=== PATIENT | female | born 1970 | race Caucasian/White ===

== ENCOUNTER 2017-05-26 16:43 | Emergency (ER) | payer BC, OTHER ==
[2017-05-26 16:57] VITALS: BP 135/84
[2017-05-26] MEDS ORDERED: Aspirin 81 MG Tab.Chew PO ONE (16:57)
[2017-05-26] MEDS ORDERED: Aspirin 81 MG Tab.Chew ONE (17:15)
--- NOTE | 2017-05-26 18:41 | EDM.PDOC ---
ED HPI GENERAL MEDICAL PROBLEM - General Chief Complaint: Chest Pain Stated Complaint: chest pain Time Seen by Provider: 05/26/17 17:00 Source of Information: Reports: Patient History Limitations: Reports: No Limitations - History of Present Illness INITIAL COMMENTS - FREE TEXT/NARRATIVE: 46-year-old female presents for evaluation and treatment of chest pain. Reports that it is located in the center of her chest. She states she was watching TV when the chest pain started. she initially became nauseated. Reports that she initially felt that this was heartburn she did take some Tums but did not get any relief with the Tums. Chest pain started about an hour prior to arrival in the ER. No current nausea. No vomiting. She denies any shortness of breath, lightheadedness, dizziness, syncope, current nausea, vomiting or any abdominal pain. The pain does not radiate into her neck, arms or back. She reports that she did eat about 2 hours prior to this chest pain starting. No recent cough or cold symptoms. patient does not have any cardiac history. No history of any MIs. Previous abdominal surgeries including cholecystectomy. patient denies any alcohol or drug use. Chest Pain Score (Numeric/FACES): 3 - Related Data Allergies Allergy/AdvReac Type Severity Reaction Status Date / Time Penicillins Allergy Hives Verified 05/26/17 16:53 Sulfa (Sulfonamide Allergy Hives Verified 05/26/17 16:53 Antibiotics) Home Meds: Home Meds Formoterol/Mometasone [Dulera 100 MCG/5 MCG] 1 puff INH DAILY 05/26/17 [History] Levothyroxine 1 tab PO DAILY 05/26/17 [History] Past Medical History Respiratory History: Reports: Asthma Endocrine/Metabolic History: Reports: Hypothyroidism Social & Family History - Tobacco Use Smoking Status *Q: Never Smoker ED ROS GENERAL - Review of Systems Review Of Systems: See Below Constitutional: Denies: Fever, Chills Respiratory: Denies: Shortness of Breath, Cough Cardiovascular: Reports: Chest Pain. Denies: Lightheadedness, Syncope GI/Abdominal: Reports: Nausea (Initially now resolved). Denies: Abdominal Pain , Vomiting Musculoskeletal: Denies: Neck Pain, Back Pain Neurological: Denies: Syncope ED EXAM, GENERAL - Physical Exam Exam: See Below Exam Limited By: No Limitations General Appearance: Alert, WD/WN, Anxious, Mild Distress Eye Exam: Bilateral Eye: Normal Inspection Ears: Normal External Exam, Hearing Grossly Normal Nose: Normal Inspection Throat/Mouth: Normal Inspection, Normal Lips, Normal Voice, No Airway Compromise Neck: Normal Inspection Respiratory/Chest: No Respiratory Distress, Lungs Clear, Normal Breath Sounds, Chest Non-Tender Cardiovascular: Normal Peripheral Pulses, Regular Rate, Rhythm, No Edema, No Murmur GI/Abdominal: Normal Bowel Sounds, Soft, Non-Tender Neurological: Alert, Oriented, Normal Cognition Psychiatric: Normal Affect, Normal Mood Skin Exam: Warm, Dry, Normal Color EKG INTERPRETATION EKG Date: 05/26/17 Time: 16:50 Rhythm: NSR Rate (Beats/Min): 68 [place]: Normal P-Wave: Present QRS: Normal ST-T: Normal QT: Normal EKG Interpretation Comments: NSR at 68 bpm. Early " R" wave transition. Qt mildly prolonged for rate. Reviewed by myself and Dr. Torres. Course - Vital Signs Last Recorded V/S: Last Vital Signs Temp 36.6 C 05/26/17 16:54 Pulse 82 05/26/17 16:54 Resp 16 05/26/17 16:54 BP 135/84 05/26/17 16:54 Pulse Ox 99 05/26/17 16:54 - Orders/Labs/Meds Labs: Laboratory Tests 05/26/17 05/26/17 05/26/17 Range/Units 16:54 16:54 16:54 WBC 8.02 (3.98-10.04) K/mm3 RBC 4.73 (3.98-5.22) M/mm3 Hgb 13.2 (11.2-15.7) gm/L Hct 39.4 (34.1-44.9) % MCV 83.3 (79.4-94.8) fl MCH 27.9 (25.6-32.2) pg MCHC 33.5 (32.2-35.5) g/dl RDW Std Deviation 41.5 (36.4-46.3) fL Plt Count 291 (182-369) K/mm3 MPV 9.2 L (9.4-12.3) fl Neutrophils % (Manual) 59 (40-60) % Band Neutrophils % 1 (0-10) % Lymphocytes % (Manual) 36 (20-40) % Atypical Lymphs % 0 % Monocytes % (Manual) 3 (2-10) % Eosinophils % (Manual) 1 (0.7-5.8) % Basophils % (Manual) 0 L (0.1-1.2) Platelet Estimate Adequate RBC Morph Comment Normal PT 10.4 (8.0-13.0) SECONDS INR 0.97 APTT 25 (22-36) SECONDS Sodium 140 (136-145) mEq/L Potassium 3.4 L (3.5-5.1) mEq/L Chloride 103 (98-107) mEq/L Carbon Dioxide 26 (21-32) mEq/L Anion Gap 14.4 (5-15) BUN 13 (7-18) mg/dL Creatinine 0.8 (0.55-1.02) mg/dL Est Cr Clr Drug Dosing 76.68 mL/min Estimated GFR (MDRD) > 60 (>60) mL/min BUN/Creatinine Ratio 16.3 (14-18) Glucose 104 (74-106) mg/dL Calcium 9.4 (8.5-10.1) mg/dL Total Bilirubin 0.2 (0.2-1.0) mg/dL AST 22 (15-37) U/L ALT 30 (14-59) U/L Alkaline Phosphatase 79 (46-116) U/L Troponin I < 0.017 (0.00-0.056) ng/mL Total Protein 8.3 H (6.4-8.2) g/dl Albumin 4.1 (3.4-5.0) g/dl Globulin 4.2 gm/dL Albumin/Globulin Ratio 1.0 (1-2) Lipase 1221 H (73-393) U/L 05/26/17 Range/Units 19:49 WBC (3.98-10.04) K/mm3 RBC (3.98-5.22) M/mm3 Hgb (11.2-15.7) gm/L Hct (34.1-44.9) % MCV (79.4-94.8) fl MCH (25.6-32.2) pg MCHC (32.2-35.5) g/dl RDW Std Deviation (36.4-46.3) fL Plt Count (182-369) K/mm3 MPV (9.4-12.3) fl Neutrophils % (Manual) (40-60) % Band Neutrophils % (0-10) % Lymphocytes % (Manual) (20-40) % Atypical Lymphs % % Monocytes % (Manual) (2-10) % Eosinophils % (Manual) (0.7-5.8) % Basophils % (Manual) (0.1-1.2) Platelet Estimate RBC Morph Comment PT (8.0-13.0) SECONDS INR APTT (22-36) SECONDS Sodium (136-145) mEq/L Potassium (3.5-5.1) mEq/L Chloride (98-107) mEq/L Carbon Dioxide (21-32) mEq/L Anion Gap (5-15) BUN (7-18) mg/dL Creatinine (0.55-1.02) mg/dL Est Cr Clr Drug Dosing mL/min Estimated GFR (MDRD) (>60) mL/min BUN/Creatinine Ratio (14-18) Glucose (74-106) mg/dL Calcium (8.5-10.1) mg/dL Total Bilirubin (0.2-1.0) mg/dL AST (15-37) U/L ALT (14-59) U/L Alkaline Phosphatase (46-116) U/L Troponin I < 0.017 (0.00-0.056) ng/mL Total Protein (6.4-8.2) g/dl Albumin (3.4-5.0) g/dl Globulin gm/dL Albumin/Globulin Ratio (1-2) Lipase (73-393) U/L Meds: Medications Discontinued Medications Generic Name Dose Route Start Last Admin Trade Name Freq PRN Reason Stop Dose Admin Aspirin 324 mg 05/26/17 16:57 05/26/17 17:10 Aspirin PO 05/26/17 16:58 324 mg ONETIME ONE Administration Aspirin Confirm 05/26/17 17:15 05/26/17 18:05 Aspirin Administered 05/26/17 17:16 Not Given Dose 324 mg .ROUTE .STK-MED ONE Iopamidol 125 ml 05/26/17 19:18 05/26/17 19:30 Isovue-300 (61%) IVPUSH 05/26/17 19:19 125 ml ONETIME ONE Administration Sodium Chloride 10 ml 05/26/17 19:19 05/26/17 19:30 Saline Flush FLUSH 10 ml ONETIME PRN Administration Keep Vein Open - Radiology Interpretation Free Text/Narrative:: chest xray shows no acute intrathoacic process. CT of the abdomen and pelvis with IV contrast impression per vrad: Large heterogeneous mass left lobe of the liver. This may represent a large cavernous hemangioma, however, other less likely etiology such as cholangiocarcinoma, angiosarcoma, or metastatic change not excluded. CT Results Date: 05/26/17 - Re-Assessments/Exams Free Text/Narrative Re-Assessment/Exam: 05/26/17 18:32 I reviewed the labs, EKG and imaging with the patient. She was offered pain medication upon arrival to the ER but declined. Only abnormality thus far is her lipase is elevated at 1221. Plan will be obtain a CT to further evaluate for pancreatitis. Will plan to repeat the troponin. She was again offered pain medication but declined. She states that this time she is pain-free and actually feels quite well. 05/26/17 20:[address] results with the patient. Her repeat troponin returned negative at less than 0.017. She is aware of the large cavernous hemangioma in her liver. She is completely pain-free and would like to go home. Plan is to have seen on Saturday to repeat her labs. She is to be on clear fluids until then. She was offered medication for pain control but declined. She was offered medication for nausea but declined. Discharge instructions as documented. Departure - Departure Time of Disposition: 20:58 Disposition: Home, Self-Care 01 Condition: Fair Clinical Impression: Pancreatitis Instructions: Acute Pancreatitis Referrals: Ksenia Mascorro MD [Primary Care Provider] - Forms: ED Department Discharge Additional Instructions: OTC tylenol or motrin as needed for pain. Follow-up with PCP on Saturday for a recheck of your labs. Clear liquids x 2 days. Please return to the ER if your symptoms change or worsen.
[2017-05-26] MEDS ORDERED: Iopamidol 612 MG/ML 150 ML Bottle IVPUSH ONE (19:18)
[2017-05-26] MEDS ORDERED: Sodium Chloride 0.9% 10 ML Syringe FLUSH PRN (19:19)
--- NOTE | 2017-05-27 09:33 | CR ---
Chest: Frontal view of the chest was obtained. Comparison: No prior chest x-ray. Heart size and mediastinum are normal. Lungs are clear. Bony structures are grossly intact. Impression: 1. Nothing acute is identified on frontal chest x-ray. Diagnostic code #1
--- NOTE | 2017-05-27 09:33 | CT ---
CT abdomen and pelvis Technique: Multiple axial sections were obtained from above the dome of the diaphragm inferiorly through the pubic symphysis. Delayed images were obtained through the pelvis. Delayed images were also obtained through the liver. Comparison: No prior abdominal imaging. Findings: Liver lesion is identified anteriorly within the left lobe. This measures approximately 6.8 cm in greatest dimension. On initial scanning this shows some peripheral enhancement and on delayed images show increasing peripheral enhancement. Findings most likely due to large hemangioma. Additional study will be recommended to confirm. Small areas of diminished enhancement seen within the dome of the right lobe in 2 locations. These are nonspecific regarding etiology. Spleen appears within normal limits. Adrenal glands appear within normal limits. Surgical clips are seen from prior cholecystectomy. Kidneys show symmetric contrast enhancement without hydronephrosis or mass. Aorta shows no aneurysmal dilatation. Appendix is seen which appears normal. No pelvic mass or adenopathy is identified. Delayed images show contrast within both distal ureters and within the bladder. Visualized lung bases are clear. Degenerative change is scattered within the spine most prominent within the apophyseal joints at L3-L4 through L5-S1. Impression: 1. Large liver lesion most likely representing hemangioma. Recommend nuclear medicine RBC SPECT study to hopefully confirm. 2. Several vague low-density lesions within the dome of the right lobe of the liver which are nonspecific by Hounsfield unit measurements but could represent similar etiology and can be evaluated on the nuclear medicine RBC SPECT study. 2. Prior cholecystectomy is noted. 3. Degenerative change within the spine as noted above. No additional abnormality is appreciated. Diagnostic code #3 Agree with preliminary report issued by [employer] ([employer] preliminary report dictated on 05/26/17, 9:05 PM Central Time)
== END 2017-05-26 21:06 | disposition home or self-care (01) ==
LOC: JD.ED 16:43
DX: K85.90 Acute pancreatitis without necrosis or infection, unspecified (principal); E03.9 Hypothyroidism, unspecified; Z79.899 Other long term (current) drug therapy; Z88.0 Allergy status to penicillin; Z88.2 Allergy status to sulfonamides
CPT/HCPCS: 36415; 71045; 74177; 80053; 83690; 84484; 85025; 85610; 85730; 93005; 99285; A9270; J7050; Q9967; 93010; 99284

== ENCOUNTER 2020-01-27 21:36 | Emergency (ER) | payer OTHER ==
[2020-01-27 21:47] VITALS: BP 142/87; PULSE 72
[2020-01-27] MEDS ORDERED: Sodium Chloride 0.9% 1,000 ML IV STA (21:54)
[2020-01-27] MEDS ORDERED: Famotidine 20 MG/2 ML SDV IVPUSH ONE (21:56)
[2020-01-27] MEDS ORDERED: Alum Hydrox/Mag Hydrox/Simeth 30 ML, Lidocaine 2% 15 ML PO ONE ×2 (21:56)
[2020-01-27] MEDS ORDERED: Ondansetron 4 MG/2 ML SDV IVPUSH ONE (21:57)
[2020-01-27] MEDS ORDERED: HYDROmorphone 1 MG/ML Syringe IVPUSH ONE (21:57)
--- NOTE | 2020-01-27 22:11 | EDM.PDOC ---
ED HPI GENERAL MEDICAL PROBLEM - General Chief Complaint: Abdominal Pain Stated Complaint: ABDOMINAL PAIN Time Seen by Provider: 01/27/20 21:50 Source of Information: Reports: Patient History Limitations: Reports: No Limitations - History of Present Illness INITIAL COMMENTS - FREE TEXT/NARRATIVE: The patient presents with upper abdominal pain. This started about an hour ago. She had her gallbladder out a few years ago. She had pancreatitis a couple times in the past. No real cause was found for it at that time. She has nausea but no vomiting yet. She has no fever, chills, cough, congestion, runny nose, chest pain, shortness of breath, dysuria or diarrhea. Onset: Gradual Duration: Hour(s): (1) Location: Reports: Abdomen Quality: Reports: Sharp Severity: Severe Improves with: Reports: None Worsens with: Reports: None Associated Symptoms: Reports: Nausea/Vomiting. Denies: Chest Pain, Cough, Fever/Chills, Headaches, Shortness of Breath Right Upper Abdomen Pain Score (Numeric/FACES): 10 - Related Data Allergies Allergy/AdvReac Type Severity Reaction Status Date / Time Penicillins Allergy Hives Verified 01/27/20 21:47 Sulfa (Sulfonamide Allergy Hives Verified 01/27/20 21:47 Antibiotics) Home Meds: Home Meds Levothyroxine 150 mcg PO DAILY 05/26/17 [History] Calcium Carbonate [Calcium] 600 mg PO BID 01/27/20 [History] Cyanocobalamin (Vitamin B-12) [Vitamin B-12] 1,000 mcg PO DAILY 01/27/20 [History] Fluticasone Propion/Salmeterol [Advair 250-50 Diskus] 1 puff IN BID 01/27/20 [History] Fluticasone Propionate [Flonase] 1 puff EFRAÍN BID 01/27/20 [History] Zinc 50 mg PO DAILY 01/27/20 [History] Past Medical History HEENT History: Reports: Impaired Vision Respiratory History: Reports: Asthma Gastrointestinal History: Reports: Pancreatitis Endocrine/Metabolic History: Reports: Hypothyroidism - Infectious Disease History Infectious Disease History: Reports: Novel Coronavirus - Past Surgical History GI Surgical History: Reports: Cholecystectomy Social & Family History - Family History Family Medical History: No Pertinent Family History - Tobacco Use Tobacco Use Status *Q: Never Tobacco User Second Hand Smoke Exposure: No - Caffeine Use Caffeine Use: Reports: None - Recreational Drug Use Recreational Drug Use: No ED ROS GENERAL - Review of Systems Review Of Systems: See Below Constitutional: Reports: No Symptoms HEENT: Reports: No Symptoms Respiratory: Reports: No Symptoms Cardiovascular: Reports: No Symptoms Endocrine: Reports: No Symptoms GI/Abdominal: Reports: Abdominal Pain, Nausea. Denies: Diarrhea, Vomiting : Reports: No Symptoms Musculoskeletal: Reports: No Symptoms ED EXAM, GI/ABD - Physical Exam Exam: See Below Exam Limited By: No Limitations General Appearance: Alert, No Apparent Distress Ears: Normal External Exam Nose: Normal Inspection Head: Atraumatic, Normocephalic Neck: Normal Inspection Respiratory/Chest: No Respiratory Distress, Lungs Clear, Normal Breath Sounds Cardiovascular: Regular Rate, Rhythm, No Edema, No Murmur GI/Abdominal Exam: Soft, No Organomegaly, No Mass, Tender (moderate) Course - Vital Signs Last Recorded V/S: Last Vital Signs Temp 97.4 F 01/27/20 21:45 Pulse 72 01/27/20 21:45 Resp 18 01/27/20 21:45 BP 142/87 H 01/27/20 21:45 Pulse Ox 99 01/27/20 21:45 - Orders/Labs/Meds Orders: Active Orders 24 hr Category Date Time Status Peripheral IV Care [RC] . DIRECTED Care 01/27/20 21:55 Active Abdomen Pelvis w Cont [CT] Stat Exams 01/27/20 21:54 Taken Sodium Chloride 0.9% [Normal Saline] 100 ml Med 01/27/20 23:45 Active IV ASDIRECTED Sodium Chloride 0.9% [Saline Flush] Med 01/27/20 21:54 Active 10 ml FLUSH ASDIRECTED PRN ED Antiemetic Medication Reflex [OM.PC] Stat Oth 01/27/20 21:55 Ordered Peripheral IV Insertion Adult [OM.PC] Stat Oth 01/27/20 21:54 Ordered Medication Orders Sodium Chloride (Normal Saline) 100 mls @ 60 mls/hr IV ASDIRECTED LEROY Sodium Chloride (Saline Flush) 10 ml FLUSH ASDIRECTED PRN PRN Reason: Keep Vein Open Last Admin: 01/27/20 23:50 Dose: 10 ml Documented by: Admin: 01/27/20 22:18 Dose: 10 ml Documented by: FRANCO Labs: Laboratory Tests 01/27/20 01/27/20 01/27/20 Range/Units 22:27 22:27 22:27 WBC 6.68 (3.98-10.04) K/mm3 RBC 4.97 (3.98-5.22) M/mm3 Hgb 12.4 (11.2-15.7) gm/dl Hct 37.7 (34.1-44.9) % MCV 75.9 L (79.4-94.8) fl MCH 24.9 L (25.6-32.2) pg MCHC 32.9 (32.2-35.5) g/dl RDW Std Deviation 48.6 H (36.4-46.3) fL Plt Count 281 (182-369) K/mm3 MPV 9.1 L (9.4-12.3) fl Neut % (Auto) 49.5 (34.0-71.1) % Lymph % (Auto) 37.6 (19.3-51.7) % [place] % (Auto) 8.5 (4.7-12.5) % Eos % (Auto) 4.0 (0.7-5.8) Baso % (Auto) 0.4 (0.1-1.2) % Neut # (Auto) 3.30 (1.56-6.13) K/mm3 Lymph # (Auto) 2.51 (1.18-3.74) K/mm3 [place] # (Auto) 0.57 H (0.24-0.36) K/mm3 Eos # (Auto) 0.27 (0.04-0.36) K/mm3 Baso # (Auto) 0.03 (0.01-0.08) K/mm3 Sodium 140 (136-145) mEq/L Potassium 3.5 (3.5-5.1) mEq/L Chloride 102 (98-107) mEq/L Carbon Dioxide 25 (21-32) mEq/L Anion Gap 16.5 H (5-15) BUN 15 (7-18) mg/dL Creatinine 0.9 (0.55-1.02) mg/dL Est Cr Clr Drug Dosing 66.01 mL/min Estimated GFR (MDRD) > 60 (>60) mL/min BUN/Creatinine Ratio 16.7 (14-18) Glucose 106 (74-106) mg/dL Calcium 9.7 (8.5-10.1) mg/dL Total Bilirubin 0.3 (0.2-1.0) mg/dL AST 50 H (15-37) U/L ALT 79 H (14-59) U/L Alkaline Phosphatase 123 H (46-116) U/L Total Protein 8.4 H (6.4-8.2) g/dl Albumin 3.9 (3.4-5.0) g/dl Globulin 4.5 gm/dL Albumin/Globulin Ratio 0.9 L (1-2) Lipase 826 H (73-393) U/L HCG, Qual Negative (NEGATIVE) Urine Color (Yellow) Urine Appearance (Clear) Urine pH (5.0-8.0) Ur Specific [place] (1.005-1.030) Urine Protein (Negative) Urine Glucose (UA) (Negative) Urine Ketones (Negative) Urine Occult Blood (Negative) Urine Nitrite (Negative) Urine Bilirubin (Negative) Urine Urobilinogen (0.2-1.0) Ur Leukocyte Esterase (Negative) Urine RBC (0-5) /hpf Urine WBC (0-5) /hpf Ur Squamous Epith Cells (0-5) /hpf Amorphous Sediment (NOT SEEN) /hpf Urine Bacteria (FEW) /hpf Urine Mucus (FEW) /hpf 01/27/20 Range/Units 22:53 WBC (3.98-10.04) K/mm3 RBC (3.98-5.22) M/mm3 Hgb (11.2-15.7) gm/dl Hct (34.1-44.9) % MCV (79.4-94.8) fl MCH (25.6-32.2) pg MCHC (32.2-35.5) g/dl RDW Std Deviation (36.4-46.3) fL Plt Count (182-369) K/mm3 MPV (9.4-12.3) fl Neut % (Auto) (34.0-71.1) % Lymph % (Auto) (19.3-51.7) % [place] % (Auto) (4.7-12.5) % Eos % (Auto) (0.7-5.8) Baso % (Auto) (0.1-1.2) % Neut # (Auto) (1.56-6.13) K/mm3 Lymph # (Auto) (1.18-3.74) K/mm3 [place] # (Auto) (0.24-0.36) K/mm3 Eos # (Auto) (0.04-0.36) K/mm3 Baso # (Auto) (0.01-0.08) K/mm3 Sodium (136-145) mEq/L Potassium (3.5-5.1) mEq/L Chloride (98-107) mEq/L Carbon Dioxide (21-32) mEq/L Anion Gap (5-15) BUN (7-18) mg/dL Creatinine (0.55-1.02) mg/dL Est Cr Clr Drug Dosing mL/min Estimated GFR (MDRD) (>60) mL/min BUN/Creatinine Ratio (14-18) Glucose (74-106) mg/dL Calcium (8.5-10.1) mg/dL Total Bilirubin (0.2-1.0) mg/dL AST (15-37) U/L ALT (14-59) U/L Alkaline Phosphatase (46-116) U/L Total Protein (6.4-8.2) g/dl Albumin (3.4-5.0) g/dl Globulin gm/dL Albumin/Globulin Ratio (1-2) Lipase (73-393) U/L HCG, Qual (NEGATIVE) Urine Color Yellow (Yellow) Urine Appearance Slt cloudy H (Clear) Urine pH 6.0 (5.0-8.0) Ur Specific [place] > or = 1.030 (1.005-1.030) Urine Protein 2+ H (Negative) Urine Glucose (UA) Negative (Negative) Urine Ketones Negative (Negative) Urine Occult Blood Negative (Negative) Urine Nitrite Negative (Negative) Urine Bilirubin Negative (Negative) Urine Urobilinogen 0.2 (0.2-1.0) Ur Leukocyte Esterase Negative (Negative) Urine RBC 0-5 (0-5) /hpf Urine WBC 0-5 (0-5) /hpf Ur Squamous Epith Cells 10-20 H (0-5) /hpf Amorphous Sediment Few H (NOT SEEN) /hpf Urine Bacteria Moderate H (FEW) /hpf Urine Mucus Many H (FEW) /hpf Meds: Medications Generic Name Dose Route Start Last Admin Trade Name Freq PRN Reason Stop Dose Admin Sodium Chloride 100 mls @ 60 mls/hr 01/27/20 23:45 Normal Saline IV ASDIRECTED LEROY Sodium Chloride 10 ml 01/27/20 21:54 01/27/20 23:50 Saline Flush FLUSH 10 ml ASDIRECTED PRN Administration Keep Vein Open Discontinued Medications Generic Name Dose Route Start Last Admin Trade Name Freq PRN Reason Stop Dose Admin Al Hydroxide/Mg Hydroxide 30 0 ml 01/27/20 21:56 01/27/20 22:13 ml/ Lidocaine HCl 15 ml PO 01/27/20 21:57 45 ml ONETIME ONE Administration Famotidine 20 mg 01/27/20 21:56 01/27/20 22:16 Pepcid IVPUSH 01/27/20 21:57 20 mg ONETIME ONE Administration Hydromorphone HCl 1 mg 01/27/20 21:57 01/27/20 22:19 Dilaudid IVPUSH 01/27/20 21:58 1 mg ONETIME ONE Administration Sodium Chloride 1,000 mls @ 1,000 mls/hr 01/27/20 21:54 01/27/20 22:14 Normal Saline IV 01/27/20 22:53 1,000 mls/hr .BOLUS STA Administration Iopamidol 100 ml 01/27/20 23:49 01/27/20 23:50 Isovue-300 (61%) IVPUSH 01/27/20 23:50 100 ml ONETIME ONE Administration Ondansetron HCl 4 mg 01/27/20 21:57 01/27/20 22:16 Zofran IVPUSH 01/27/20 21:58 4 mg ONETIME ONE Administration - Re-Assessments/Exams Free Text/Narrative Re-Assessment/Exam: 01/27/20 22:12 I have ordered an IV NS 1L bolus, labs, UA, CT, zofran 4mg IV, dilaudid 1mg IV, pepcid 20mg IV and GI cocktail. 01/28/20 00:43 Her CBC looks good. Her AST was elevated at 50. Her ALT was elevated at 79. Her Alk Phos was elevated at 120. Her lipase is elevated at 826. Her HCG is negative. Her UA shows no UTI. Her CT shows focal hepatic lesion demonstrating peripheral puddling suggestion this may represent a hemangioma within the left lobe of the liver. This appears to be grossly stable when compared to the previous examination. Marked fatty change within the liver with area os focal fatty sparing within the caudate lobe. Status post cholecystectomy without biliary tract obstruction. An etiology for acute abdominal pain is nt identified. She is feeling better and would like to go home. She does not want anything for pain or nausea. I will have her follow up with her provider. Departure - Departure Time of Disposition: 00:50 Disposition: Home, Self-Care 01 Condition: Good Clinical Impression: Pancreatitis Qualifiers: Chronicity: acute Pancreatitis type: other Acute pancreatitis complication: no infection or necrosis Qualified Code(s): K85.80 - Other acute pancreatitis without necrosis or infection - Discharge Information Referrals: Ksenia Mascorro MD [Primary Care Provider] - 2 Weeks Forms: ED Department Discharge Additional Instructions: Drink plenty of fluids. Advance your diet as tolerated. Please return if you are worse. Sepsis Event Note (ED) - Evaluation Sepsis Screening Result: No Definite Risk - Focused Exam Vital Signs: Vital Signs Temp Pulse Resp BP Pulse Ox 01/27/20 21:45 97.4 F 72 18 142/87 H 99 - My Orders Last 24 Hours: My Active Orders 01/27/20 21:54 Abdomen Pelvis w Cont [CT] Stat Sodium Chloride 0.9% [Saline Flush] 10 ml FLUSH ASDIRECTED PRN Peripheral IV Insertion Adult [OM.PC] Stat 01/27/20 21:55 Peripheral IV Care [RC] . DIRECTED ED Antiemetic Medication Reflex [OM.PC] Stat 01/27/20 23:45 Sodium Chloride 0.9% [Normal Saline] 100 ml IV ASDIRECTED - Assessment/Plan Last 24 Hours: My Active Orders 01/27/20 21:54 Abdomen Pelvis w Cont [CT] Stat Sodium Chloride 0.9% [Saline Flush] 10 ml FLUSH ASDIRECTED PRN Peripheral IV Insertion Adult [OM.PC] Stat 01/27/20 21:55 Peripheral IV Care [RC] . DIRECTED ED Antiemetic Medication Reflex [OM.PC] Stat 01/27/20 23:45 Sodium Chloride 0.9% [Normal Saline] 100 ml IV ASDIRECTED
[2020-01-27] MEDS: Sodium Chloride 0.9% 10 ML Syringe FLUSH PRN ×2 (22:18→23:50)
[2020-01-27] MEDS ORDERED: Sodium Chloride 0.9% 100 ML IV SCH (23:45)
[2020-01-27] MEDS ORDERED: Iopamidol 612 MG/ML 100 ML Bottle IVPUSH ONE (23:49)
[2020-01-28] MEDS ORDERED: Acetaminophen/HYDROcodone 325-5 MG Tab PO ONE (01:12)
--- NOTE | 2020-02-01 09:11 | CT ---
PROCEDURE INFORMATION: Exam: CT Abdomen And Pelvis With Contrast Exam date and time: 01/27/2020 11:11 PM Age: 49 years old Clinical indication: Abdominal pain; Generalized; Patient HX: PT having abdomen pain onset today at 0; Additional info: Prior report scanned for your review TECHNIQUE: Imaging protocol: Computed tomography of the abdomen and pelvis with intravenous contrast. Contrast material: ISOVUE 300; Contrast volume: 98 ml; Contrast route: INTRAVENOUS (IV); COMPARISON: CT Abdomen Pelvis w Cont 05/26/2017 7:19 PM FINDINGS: Liver: Again noted is a lesion within the left lobe of the liver measuring approximately 6.8 x 4.5 cm. Allowing for slight differences in phase of contrast enhancement, this appears to be similar. Delayed images demonstrate peripheral puddling suggesting this could represent a hemangioma. The lesion remains nonspecific. Multiphase a [place] MRI could be considered for additional assessment. There is diffuse decreased attenuation within the liver compatible with fatty change with some focal fatty sparing within the caudate lobe. Gallbladder and bile ducts: The gallbladder has been removed. There is no biliary ductal dilatation. Pancreas: Normal. No ductal dilation. Spleen: Normal. No splenomegaly. Adrenal glands: Normal. No mass. Kidneys and ureters: An extrarenal pelvis is present on the left. No solid lesion, stone or hydronephrosis identified. Stomach and bowel: Unremarkable. No obstruction. No mucosal thickening. Appendix: No evidence of appendicitis. Intraperitoneal space: Unremarkable. No free air. No significant fluid collection. Vasculature: Unremarkable. No abdominal aortic aneurysm. Lymph nodes: Unremarkable. No enlarged lymph nodes. Urinary bladder: Unremarkable as visualized. Reproductive: Unremarkable as visualized. Bones/joints: Unremarkable. No acute fracture. Soft tissues: Unremarkable. IMPRESSION: 1. Focal hepatic lesion demonstrating peripheral puddling suggesting this may represent a hemangioma within the left lobe of the liver. Multiphase hepatic MRI may be useful for confirmation. This appears to be grossly stable when compared to the previous examination. 2. Marked fatty change within the liver with areas of focal fatty sparing within the caudate lobe. 3. Status post cholecystectomy without biliary tract obstruction. 4. An etiology for acute abdominal pain is not identified. Thank you for allowing us to participate in the care of your patient. Dictated and Authenticated by: Davi Mandel MD 01/28/2020 12:55 AM Central Time ([place] & [place]) [facility]
== END 2020-01-28 01:00 | disposition home or self-care (01) ==
LOC: JD.ED 21:36
DX: K85.80 Other acute pancreatitis without necrosis or infection (principal); J45.909 Unspecified asthma, uncomplicated; E03.9 Hypothyroidism, unspecified; Z88.0 Allergy status to penicillin; Z88.2 Allergy status to sulfonamides; Z79.899 Other long term (current) drug therapy
CPT/HCPCS: 36415; 74177; 80053; 81001; 83690; 84703; 85025; 96374; 96375; 99284; A9270; J1170; J2405; J3490; J7030; Q9967

== ENCOUNTER 2020-04-06 14:59 | Emergency (ER) | payer OTHER ==
[2020-04-06 15:23] VITALS: BP 141/98; PULSE 75
--- NOTE | 2020-04-06 16:07 | EDM.PDOC ---
ED HPI GENERAL MEDICAL PROBLEM - General Chief Complaint: Abdominal Pain Stated Complaint: ABD PAIN Time Seen by Provider: 04/06/20 15:15 Source of Information: Reports: Patient, RN Notes Reviewed History Limitations: Reports: No Limitations - History of Present Illness INITIAL COMMENTS - FREE TEXT/NARRATIVE: Patient is a 49-year-old female presenting to the emergency department after having an episode of severe right upper quadrant abdominal pain. She states that at approximately 2 PM, she developed sudden onset of right upper quadrant abdominal pain. She states it was quite intense and made her diaphoretic. Shortly thereafter she had a bowel movement which she states was normal and not loose. She did feel nauseous but not did not have any vomiting. She called her to pick her up and bring her to the hospital. After checking into the hospital, she did take one of her Romulus. By the time of my exam, the pain had essentially resolved. Patient does have a history of pancreatitis and states that this feels similar to her previous episodes, however she generally has chest pain/heartburn, when she has those episodes. She does not have a gallbladder, however she does have a history of a hemangioma in her liver and she is concerned that this could be causing her symptoms. Her primary care provider is Dr. Mason. She has not seen a blind teacher. She denies any chest pain, shortness of breath, dizziness, fever, or chills. Right Upper Abdomen Pain Score (Numeric/FACES): 2 - Related Data Allergies Allergy/AdvReac Type Severity Reaction Status Date / Time Penicillins Allergy Hives Verified 04/06/20 15:15 Sulfa (Sulfonamide Allergy Hives Verified 04/06/20 15:15 Antibiotics) Home Meds: Home Meds Levothyroxine 150 mcg PO DAILY 05/26/17 [History] Calcium Carbonate [Calcium] 600 mg PO BID 01/27/20 [History] Cyanocobalamin (Vitamin B-12) [Vitamin B-12] 1,000 mcg PO DAILY 01/27/20 [History] Fluticasone Propion/Salmeterol [Advair 250-50 Diskus] 1 puff IN BID 01/27/20 [History] Fluticasone Propionate [Flonase] 1 puff EFRAÍN BID 01/27/20 [History] Zinc 50 mg PO DAILY 01/27/20 [History] Hydrocodone/Acetaminophen [Hydrocodone-Acetamin 5-325 mg] 1 - 2 each PO Q6HR PRN #10 tablet 01/28/20 [Rx] Past Medical History HEENT History: Reports: Impaired Vision Cardiovascular History: Reports: High Cholesterol Respiratory History: Reports: Asthma Gastrointestinal History: Reports: Pancreatitis Genitourinary History: Reports: None 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: , 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 Musculoskeletal History: Reports: None Neurological History: Reports: None Psychiatric History: Reports: None Endocrine/Metabolic History: Reports: Hypothyroidism Hematologic History: Reports: None Immunologic History: Reports: None Oncologic (Cancer) History: Reports: None Dermatologic History: Reports: None - Infectious Disease History Infectious Disease History: Reports: Novel Coronavirus - Past Surgical History Head Surgeries/Procedures: Reports: None HEENT Surgical History: Reports: Oral Surgery GI Surgical History: Reports: Cholecystectomy Social & Family History - Family History Family Medical History: No Pertinent Family History Cardiac: Reports: CAD Respiratory: Reports: COPD Oncologic: Reports: Breast - Tobacco Use Tobacco Use Status *Q: Never Tobacco User - Caffeine Use Caffeine Use: Reports: Coffee - Recreational Drug Use Recreational Drug Use: No ED ROS GENERAL - Review of Systems Review Of Systems: See Below Constitutional: Reports: No Symptoms HEENT: Reports: No Symptoms Respiratory: Reports: No Symptoms. Denies: Shortness of Breath, Cough Cardiovascular: Reports: No Symptoms. Denies: Chest Pain, Palpitations, Syncope Endocrine: Reports: No Symptoms GI/Abdominal: Reports: Abdominal Pain, Nausea. Denies: Diarrhea, Vomiting : Reports: No Symptoms Musculoskeletal: Reports: No Symptoms Skin: Reports: No Symptoms Neurological: Reports: No Symptoms Psychiatric: Reports: No Symptoms Hematologic/Lymphatic: Reports: No Symptoms Immunologic: Reports: No Symptoms ED EXAM, GI/ABD - Physical Exam Exam: See Below Exam Limited By: No Limitations General Appearance: Alert, WD/WN, No Apparent Distress Respiratory/Chest: No Respiratory Distress, Lungs Clear, Normal Breath Sounds, No Accessory Muscle Use, Chest Non-Tender Cardiovascular: Normal Peripheral Pulses, Regular Rate, Rhythm, No Edema, No Gallop, No JVD, No Murmur, No Rub GI/Abdominal Exam: Normal Bowel Sounds, Soft, No Organomegaly, No Distention, No Abnormal Bruit, No Mass, Pelvis Stable, Tender (mild RUQ) Neurological: Alert, Oriented, CN II-XII Intact, Normal Cognition, Normal Gait, Normal Reflexes, No Motor/Sensory Deficits Psychiatric: Normal Affect, Normal Mood Skin Exam: Warm, Dry, Intact, Normal Color, No Rash #1 Interpretation EKG Date: 04/06/20 Time: 16:10 Rhythm: NSR Rate (Beats/Min): 69 [place]: Normal P-Wave: Present QRS: Normal ST-T: Normal QT: Normal Course - Vital Signs Last Recorded V/S: Last Vital Signs Temp 97.5 F 04/06/20 15:20 Pulse 75 04/06/20 15:20 Resp 18 04/06/20 15:20 BP 141/98 H 04/06/20 15:20 Pulse Ox 98 04/06/20 15:20 - Orders/Labs/Meds Orders: Active Orders 24 hr Category Date Time Status Insert Ramey Catheter [Insert Urinary Catheter] [OM.PC] Care 04/06/20 19:10 Ordered Stat Labs: Laboratory Tests 04/06/20 04/06/20 04/06/20 Range/Units 16:10 16:10 16:10 WBC 6.55 (3.98-10.04) K/mm3 RBC 4.60 (3.98-5.22) M/mm3 Hgb 11.5 (11.2-15.7) gm/dl Hct 36.6 (34.1-44.9) % MCV 79.6 D (79.4-94.8) fl MCH 25.0 L (25.6-32.2) pg MCHC 31.4 L (32.2-35.5) g/dl RDW Std Deviation 47.5 H (36.4-46.3) fL Plt Count 273 (182-369) K/mm3 MPV 9.0 L (9.4-12.3) fl Neut % (Auto) 65.6 (34.0-71.1) % Lymph % (Auto) 22.6 (19.3-51.7) % Roosevelt % (Auto) 7.8 (4.7-12.5) % Eos % (Auto) 3.5 (0.7-5.8) Baso % (Auto) 0.3 (0.1-1.2) % Neut # (Auto) 4.30 (1.56-6.13) K/mm3 Lymph # (Auto) 1.48 (1.18-3.74) K/mm3 Roosevelt # (Auto) 0.51 H (0.24-0.36) K/mm3 Eos # (Auto) 0.23 (0.04-0.36) K/mm3 Baso # (Auto) 0.02 (0.01-0.08) K/mm3 Sodium 143 (136-145) mEq/L Potassium 3.6 (3.5-5.1) mEq/L Chloride 105 (98-107) mEq/L Carbon Dioxide 26 (21-32) mEq/L Anion Gap 15.6 H (5-15) BUN 13 (7-18) mg/dL Creatinine 0.7 (0.55-1.02) mg/dL Est Cr Clr Drug Dosing 84.87 mL/min Estimated GFR (MDRD) > 60 (>60) mL/min BUN/Creatinine Ratio 18.6 H (14-18) Glucose 116 H (74-106) mg/dL Calcium 9.5 (8.5-10.1) mg/dL Total Bilirubin 0.2 (0.2-1.0) mg/dL GGT (5-55) U/L AST 69 H (15-37) U/L ALT 108 H (14-59) U/L Alkaline Phosphatase 100 (46-116) U/L Troponin I < 0.017 (0.00-0.056) ng/mL C-Reactive Protein 0.4 (<1.0) mg/dL Total Protein 7.5 (6.4-8.2) g/dl Albumin 3.7 (3.4-5.0) g/dl Globulin 3.8 gm/dL Albumin/Globulin Ratio 1.0 (1-2) Lipase 2490 H (73-393) U/L HCG, Qual (NEGATIVE) 04/06/20 04/06/20 Range/Units 16:10 16:10 WBC (3.98-10.04) K/mm3 RBC (3.98-5.22) M/mm3 Hgb (11.2-15.7) gm/dl Hct (34.1-44.9) % MCV (79.4-94.8) fl MCH (25.6-32.2) pg MCHC (32.2-35.5) g/dl RDW Std Deviation (36.4-46.3) fL Plt Count (182-369) K/mm3 MPV (9.4-12.3) fl Neut % (Auto) (34.0-71.1) % Lymph % (Auto) (19.3-51.7) % Roosevelt % (Auto) (4.7-12.5) % Eos % (Auto) (0.7-5.8) Baso % (Auto) (0.1-1.2) % Neut # (Auto) (1.56-6.13) K/mm3 Lymph # (Auto) (1.18-3.74) K/mm3 Roosevelt # (Auto) (0.24-0.36) K/mm3 Eos # (Auto) (0.04-0.36) K/mm3 Baso # (Auto) (0.01-0.08) K/mm3 Sodium (136-145) mEq/L Potassium (3.5-5.1) mEq/L Chloride (98-107) mEq/L Carbon Dioxide (21-32) mEq/L Anion Gap (5-15) BUN (7-18) mg/dL Creatinine (0.55-1.02) mg/dL Est Cr Clr Drug Dosing mL/min Estimated GFR (MDRD) (>60) mL/min BUN/Creatinine Ratio (14-18) Glucose (74-106) mg/dL Calcium (8.5-10.1) mg/dL Total Bilirubin (0.2-1.0) mg/dL GGT 67 H (5-55) U/L AST (15-37) U/L ALT (14-59) U/L Alkaline Phosphatase (46-116) U/L Troponin I (0.00-0.056) ng/mL C-Reactive Protein (<1.0) mg/dL Total Protein (6.4-8.2) g/dl Albumin (3.4-5.0) g/dl Globulin gm/dL Albumin/Globulin Ratio (1-2) Lipase (73-393) U/L HCG, Qual Negative (NEGATIVE) Meds: Medications Discontinued Medications Generic Name Dose Route Start Last Admin Trade Name Freq PRN Reason Stop Dose Admin Sodium Chloride 1,000 mls @ 999 mls/hr 04/06/20 15:54 04/06/20 16:25 Normal Saline IV 04/06/20 16:54 999 mls/hr NOW STA Administration Iopamidol 100 ml 04/06/20 17:05 04/06/20 17:18 Isovue-300 (61%) IVPUSH 04/06/20 17:06 100 ml ONETIME ONE Administration Sodium Chloride 10 ml 04/06/20 15:54 04/06/20 16:25 Saline Flush FLUSH 10 ml ASDIRECTED PRN Administration Keep Vein Open Sodium Chloride 10 ml 04/06/20 17:15 04/06/20 17:18 Saline Flush FLUSH 10 ml BOLUS LEROY Administration - Re-Assessments/Exams Free Text/Narrative Re-Assessment/Exam: Patient is a 49-year-old female presenting to the emergency department with complaints of acute onset of right upper quadrant abdominal pain approximately 2 hours prior to coming to ER. She states the pain was quite intense caused her to become diaphoretic. She did have a bowel movement immediately after but states it was a normal bowel movement not loose. She has had no vomiting but did feel nauseous. After checking to the ER, she took one of her hydrocodone and states that the pain has essentially resolved now. She has had a cholecystectomy approximately 10 years ago. She does also have a history of pancreatitis and states that the pain she had felt similar to that. She has been told in the past that she has a hemangioma on her liver and on review of her previous CT scans that is the case however, subsequent MRI was recommended but she has not had that done thus far. She has never seen a blind teacher. Denies any alcohol use. States she has not eaten any fatty foods recently. Her primary care provider is Dr. Yoder. I have ordered CBC, CMP, CRP, lipase. Have ordered a CT scan of the abdomen pelvis with IV contrast only to visualize the liver and pancreas. I will give a 1 L bolus of normal saline to help flush out to the IV contrast from the CT scan. She denies a need for any pain or nausea medications at this time. 04/06/20 18:57 Hematology was significant for GGT minimally elevated at 67, AST 69, ALT 108, alkaline phosphatase is normal. Lipase elevated at 2490. CT scan of the abdomen pelvis shows vascular lesion in the left lobe lateral segment stable. Probable hemangioma. No progression over reasonable long follow-up. Focal areas of increased density caudate lobe likely reflects focal fatty sparing. Pattern stable. Advanced hepatic steatosis. Small cyst right ovary. No follow-up in GI imaging is recommended. Pancreas is visualized is normal. There is no biliary duct dilatation. Patient has had no recurrence of pain. She has had no vomiting. Discussed with patient that I would recommend follow- up with your primary care provider to further evaluate her chronically elevated lipase and possibly be referred to a blind teacher. Discussed return precautions. Discharge instructions as documented. Departure - Departure Time of Disposition: 18:57 Disposition: Home, Self-Care 01 Condition: Good Clinical Impression: Elevated lipase Abdominal pain Qualifiers: Abdominal location: right upper quadrant Qualified Code(s): R10.11 - Right upper quadrant pain - Discharge Information *PRESCRIPTION DRUG MONITORING PROGRAM REVIEWED*: No *COPY OF PRESCRIPTION DRUG MONITORING REPORT IN PATIENT ELVIN: No Instructions: Abdominal Pain, Adult, [id number] Referrals: Ksenia Mascorro MD [Primary Care Provider] - Forms: ED Department Discharge Additional Instructions: You were seen in the emergency department today for an episode of right upper quadrant pain that had resolved by the time you were examined in the emergency department. Work-up was done including blood work and a CT scan of your abdomen and pelvis. Results of the work-up show that you do have an elevated lipase but your pancreas is normal on the CT scan. Recommend that you follow-up with your primary care provider at her next available visit to discuss your chronically elevated lipase and the possibility of a referral to a blind teacher. If you have a recurrence of the pain, you may try using one of your Romulus. If the pain does not improve or if the pain seems worse or different from your previous episodes, return to the emergency department for reevaluation. Sepsis Event Note (ED) - Evaluation Sepsis Screening Result: No Definite Risk - My Orders Last 24 Hours: My Active Orders 04/06/20 19:10 Insert Ramey Catheter [Insert Urinary Catheter] [OM.PC] Stat - Assessment/Plan Last 24 Hours: My Active Orders 04/06/20 19:10 Insert Ramey Catheter [Insert Urinary Catheter] [OM.PC] Stat
[2020-04-06] MEDS: Sodium Chloride 0.9% 1,000 ML IV STA (16:25)
[2020-04-06] MEDS: Sodium Chloride 0.9% 10 ML Syringe FLUSH PRN (16:25)
[2020-04-06] MEDS: Iopamidol 612 MG/ML 100 ML Bottle IVPUSH ONE (17:18)
[2020-04-06] MEDS: Sodium Chloride 0.9% 10 ML Syringe FLUSH SCH (17:18)
--- NOTE | 2020-04-07 08:40 | CT ---
CT abdomen and pelvis Technique: Multiple axial sections were obtained from above the dome of the diaphragm inferiorly through the pubic symphysis. Intravenous contrast was utilized. No oral contrast has been given. Delayed images were also obtained from above the dome of the diaphragm inferiorly to the pubic symphysis. Reconstructed coronal and sagittal images were obtained. Comparison: Prior CT abdomen and pelvis study of 05/26/17. Findings: Small portion of the visualized lung bases shows nothing acute. Abnormality is identified within the left lobe of the liver measuring approximately 6.6 cm in size. This is stable from prior study and shows peripheral enhancement which is felt compatible with hemangioma. Two small low density findings are also noted within the upper right lobe of the liver with the largest measuring 1.1 cm in size. These are stable from prior study and most likely represent smaller areas of hemangiomas. There is slight increased density within the caudate lobe. Diffuse fatty infiltration is seen. Caudate lesion is most likely due to mild fatty sparing. Spleen appears within normal limits. Adrenal glands show no nodule. Surgical clips are noted from prior cholecystectomy. Pancreas shows no discrete abnormality. Small low density finding is noted within the mid to upper right kidney. This is appreciated on prior study and most likely represents a minimal cyst measuring about 5 mm or less in size. Additional lesion is noted within the inferior right kidney measuring 9 mm in size which is felt compatible with additional cyst. Delayed images show contrast within the ureters and bladder. No calcifications are seen within the bladder. Aorta shows mild atherosclerotic change without aneurysm. No retroperitoneal adenopathy is seen. No mesenteric abnormalities are seen. Appendix is seen which is normal. No pelvic mass or adenopathy is appreciated. Bone window settings were reviewed which show slight degenerative change scattered within the spine. No acute osseous abnormality is appreciated. Impression: 1. Three hemangiomas within the liver. Largest measures up to 6.6 cm. 2. Prominent fatty infiltration within the liver with mild focal fatty sparing within the caudate lobe. 3. Other findings as noted above. Nothing acute is appreciated. Diagnostic code #2 I agree with preliminary report from [facility], finalized on 04/06/20, 7:32 PM REFERENCE ASSISTANT
== END 2020-04-06 19:18 | disposition home or self-care (01) ==
LOC: JD.ED 14:59
DX: R10.11 Right upper quadrant pain (principal); R74.8 Abnormal levels of other serum enzymes; R11.0 Nausea; J45.909 Unspecified asthma, uncomplicated; E03.9 Hypothyroidism, unspecified; Z86.16 Personal history of COVID-19; Z88.0 Allergy status to penicillin; Z88.2 Allergy status to sulfonamides; Z79.899 Other long term (current) drug therapy
CPT/HCPCS: 36415; 74177; 80053; 82977; 83690; 84484; 84703; 85025; 86140; 93005; 99284; J7030; Q9967; 93010

== ENCOUNTER 2021-04-26 08:53 | Emergency (ER) | payer OTHER ==
[2021-04-26 09:29] VITALS: BP 121/70; PULSE 67
[2021-04-26] MEDS ORDERED: Alum Hydrox/Mag Hydrox/Simeth 30 ML, Lidocaine 2% 15 ML PO ONE ×2 (09:36)
[2021-04-26] MEDS ORDERED: Famotidine 20 MG Tab PO ONE (09:36)
== END 2021-04-26 11:16 | disposition home or self-care (01) ==
LOC: JD.ED 08:53
DX: R10.11 Right upper quadrant pain (principal); E78.00 Pure hypercholesterolemia, unspecified; E03.9 Hypothyroidism, unspecified; Z88.0 Allergy status to penicillin; Z88.2 Allergy status to sulfonamides; Z79.899 Other long term (current) drug therapy; Z86.16 Personal history of COVID-19
CPT/HCPCS: 36415; 80053; 83690; 85025; 93005; 99284; A9270; 93010

== ENCOUNTER 2021-11-07 08:47 | Emergency (ER) | payer OTHER ==
[2021-11-07] MEDS ORDERED: Ondansetron 4 MG/2 ML SDV IVPUSH ONE (10:04)
[2021-11-07] MEDS ORDERED: Sodium Chloride 0.9% 10 ML Syringe FLUSH PRN (10:04)
[2021-11-07] MEDS ORDERED: Sodium Chloride 0.9% 1,000 ML IV STA (10:04)
[2021-11-07] MEDS ORDERED: HYDROmorphone 0.5 MG/0.5 ML Syringe IVPUSH ONE (10:05)
[2021-11-07] MEDS ORDERED: Iopamidol 612 MG/ML 100 ML Bottle IVPUSH ONE (10:08)
[2021-11-07] MEDS: Sodium Chloride 0.9% 10 ML Syringe FLUSH PRN ×2 (10:59→11:10)
[2021-11-07 13:28] VITALS: BP 107/67; PULSE 60
== END 2021-11-07 13:18 | disposition home or self-care (01) ==
LOC: JD.ED 08:47
DX: K85.80 Other acute pancreatitis without necrosis or infection (principal); E03.9 Hypothyroidism, unspecified; Z88.0 Allergy status to penicillin; Z88.2 Allergy status to sulfonamides; Z79.899 Other long term (current) drug therapy; Z86.16 Personal history of COVID-19; Z90.49 Acquired absence of other specified parts of digestive tract
CPT/HCPCS: 36415; 74177; 80053; 81001; 83690; 85025; 96361; 96374; 96375; 99284; J1170; J2405; J3490; J7030; Q9967